=== PATIENT | male | born 1950 | race Caucasian/White ===

== ENCOUNTER → 2020-03-15 | Outpatient (CLI) | payer MEDICARE, BC | LOC: BHSO 10:54 | DX: F33.1 Major depressive disorder, recurrent, moderate (principal) ==

== ENCOUNTER → 2020-04-14 | Outpatient (CLI) | payer MEDICARE, BC | LOC: BHSO 10:40 | DX: F33.41 Major depressive disorder, recurrent, in partial remission (principal) | CPT/HCPCS: G0463 ==

== ENCOUNTER 2020-09-23 23:26 | Emergency (ER) | payer MEDICARE, BC ==
[2020-09-24 00:15] VITALS: TEMP 97.5
[2020-09-24 01:01] LABS: HEMATOCRIT 47.8 % (42.0-52.0); HEMOGLOBIN 15.9 g/dl (13.5-18.0); MEAN CELL VOLUME 89 fl (80.0-100.0); MEAN CORPUSCULAR HEMOGLOBIN 30 pg (27.0-31.0); MEAN CORPUSCULAR HGB CONC 33 g/dl (33.0-37.0); MEAN PLATELET VOLUME 10.2 fl (7.4-10.4); PLATELET COUNT 203 K/mm3 (130-400); RED BLOOD COUNT 5.36 M/mm3 (4.20-5.60)
[2020-09-24 01:12] LABS: CALCIUM 9.2 mg/dL (8.4-10.2); CREATININE, serum 1.57 (0.66-1.25); POTASSIUM 4.2 mmol/L (3.4-5.0)
[2020-09-24 01:13] LABS: BAND 5 % (0-10); LYMPHOCYTE 6 % (20.0-51.0); NEUTROPHILS 86 % (42.0-75.2); PLATELET ESTIMATE NORMAL (NORMAL)
[2020-09-24] MEDS ORDERED: FLOMAX 0.40.4 MG/CAP PO (02:26)
[2020-09-24] MEDS ORDERED: NORCO 325 MG-51 TAB PO (02:26)
[2020-09-24] MEDS ORDERED: ZOFRAN ODT4 MG PO (02:26)
[2020-09-24 02:41] LABS: MUCOUS Present /lpf; PH 5 (5-8); SQUAMOUS EPITHELIAL None Seen /hpf; URINE APPEARANCE Cloudy; URINE BACTERIA None Seen /hpf; URINE BILIRUBIN Negative (NEGATIVE); URINE BLOOD 3+ (NEGATIVE); URINE COLOR Amber; URINE GLUCOSE Negative (NEGATIVE); URINE KETONE 1+ (NEGATIVE); URINE LEUKOCYTE ESTERASE Negative (NEGATIVE); URINE NITRATE Negative (NEGATIVE); URINE PROTEIN(semi-quant) 1+ (NEGATIVE); URINE RBC >50 /hpf; URINE UROBILINOGEN Negative (NEGATIVE)
[2020-09-24 02:42] VITALS: BP 142/78; PULSE 76
[2020-09-24] MEDS ORDERED: CEPHALEXIN500 M1 PO (02:49)
[2020-09-24 02:52] LABS: COLLECTION METHOD CLEAN CATCH
== END 2020-09-24 02:42 | disposition home or self-care (01) ==
LOC: COL.ER 23:26
PROVIDERS: Emergency Medicine
DX: N20.2 Calculus of kidney with calculus of ureter (principal); Z87.442 Personal history of urinary calculi
CPT/HCPCS: J1170; J1885; J2405